=== PATIENT | female | born 1990 | race Caucasian/White ===

== ENCOUNTER 2019-08-05 07:02 | Emergency (ER) | payer SELFPAY ==
[~2019-08-05] VITALS: Ht 172.7 cm; Wt 61.7 kg
[2019-08-05 07:06] VITALS: BP 129/77; Ht 172.7 cm; Wt 61.7 kg
== END 2019-08-05 08:14 | disposition home or self-care (01) ==
LOC: ED 07:02
DX: H66.92 Otitis media, unspecified, left ear (principal); Z88.0 Allergy status to penicillin; Z88.2 Allergy status to sulfonamides